=== PATIENT | male | born 1980 | race Two or more races ===

== ENCOUNTER 2016-09-13 19:14 | Emergency (ER) | payer SELFPAY ==
--- NOTE | ~2016-09-13 | CT2 ---
[facility] A Service of [facility] RADIOLOGY TEXT RESULTS PATIENT: ROSANA ANDRES LOCATION: [facility] : 82 UNIT #: [id number] AGE: [address]: Lazara Chaney MD SEX: M ORDER DR: [id number] [facility]. [place], [place] [address] [id number] MR#: [id number] #: [id number] NAME: ROSANA ANDRES : 1980 SEX: M STUDY DATE/TIME: 09/13/2016 22:16 UNIT: [facility] ROOM: STUDY DESCRIPTION: CT Abd and Pelv W Cont Attending Physician: Lazara Chaney M.D. Ordering Physician: Lazara Chaney M.D. Primary Care Physician: No Primary Care Physician MEDICAL IMAGING REPORT This report is preliminary unless electronic signature is present EXAM CT abdomen and pelvis with contrast. HISTORY 36-year-old male with abdominal pain, nausea, vomiting x3 days. States drinks 15-18 beers a day. COMPARISION CT abdomen and pelvis 12/03/15. TECHNIQUE Axial images form through the abdomen and pelvis following IV contrast. Multiplanar reconstructed images were reviewed at a workstation. This CT exam was performed with one or more of the following radiation dose reduction techniques: Automatic exposure control, adjustment of mA and/or kV according to patient size, and iterative reconstruction. FINDINGS Abdomen: Lung bases unremarkable. The liver demonstrates heterogeneous areas of decreased attenuation within the liver most prominent within the right lobe but also within the left lobe. This most likely represents heterogeneous fatty infiltration and as previously noted does have a somewhat mass-like appearance but remains stable when compared to the CT scan of November 2015. Given the patient's history of alcohol abuse. This may be a contributing factor. No definite cirrhotic changes are identified. Normal hepatic vasculature. Gallbladder, spleen, pancreas, kidneys and adrenal glands unremarkable. No ascites. Visualized GI tract to include the appendix is normal. Pelvis: Bladder and prostate appear normal. Osseous structures, soft tissues unremarkable. [facility] A Service of [facility] RADIOLOGY TEXT RESULTS PATIENT: ROSANA ANDRES LOCATION: [facility] : 82 UNIT #: [id number] AGE: [address]: Lazara Chaney MD SEX: M ORDER DR: IMPRESSION Markedly abnormal liver with apparent geographic fatty infiltration or hepatic steatosis of the liver, possibly a sequela of the patient's apparent, alcohol abuse. This however remains stable when compared to the patient's CT scan of November 2015. Dictated by... Carolyn Sims M.D. THIS IS AN ELECTRONICALLY VERIFIED REPORT Carolyn Sims M.D. at 09/14/2016 2:50 PM REGULO/david TD: 09/14/2016 06:17 JOB #: [id number] MEDICAL IMAGING REPORT Page 1 of 1 COPY
[2016-09-13 20:19] LABS: BASOPHIL# 0.1 X10e3 (0-0.3); BASOPHIL% 1.4 % (0-2.5); EOSINOPHIL# 0.1 X10e3 (0-0.7); EOSINOPHIL% 0.9 % (0.0-7.0); HEMATOCRIT 49.9 % (38.0-50.0); HEMOGLOBIN 16.6 gm/dL (13.0-16.0); LYMPHOCYTE# 1.6 X10e3 (1.0-3.5); LYMPHOCYTE% 19.5 % (17.0-45.0); MEAN CELL VOLUME 92.7 FL (83-96); MEAN CORPUSCULAR HEMOGLOBIN 30.8 PG (28-34); MEAN CORPUSCULAR HGB CONC 33.2 g/dL (30-36); MEAN PLATELET VOLUME 8.7 FL (6.5-11.5); MONOCYTE# 0.6 X10e3 (0-1.0); MONOCYTE% 6.7 % (3.0-12.0); NEUTROPHIL# 5.9 X10e3 (1.5-7.1); NEUTROPHIL% 71.5 % (40-75); PLATELET COUNT 164 X10e3 (140-420); RED BLOOD COUNT 5.39 X10e (3.90-5.60); RED CELL DISTRIBUTION WIDTH 12.9 % (11.0-15.5); WHITE BLOOD COUNT 8.2 X10e3 (4.0-10.5)
[2016-09-13 20:22] LABS: DIFF IND NO
[2016-09-13 20:45] LABS: ALBUMIN SERUM 4.5 g/dL (3.5-5.0); BILIRUBIN, DIRECT 0.5 mg/dL (0.0-0.2); BILIRUBIN,INDIRECT 1.3 mg/dL (0.0-0.9); BILIRUBIN,TOTAL 1.8 mg/dL (0.2-2.0); CALCIUM SERUM 9.3 mg/dL (8.4-10.2); CREATININE SERUM 0.8 mg/dL (0.6-1.4); GLOM FILT RATE Estimated 115.8 mL/min (>60); PROTEIN TOTAL SERUM 8.8 g/dL (6.0-8.3)
[2016-09-13 21:11] LABS: URINE SOURCE CLEAN CATCH
[2016-09-13 21:15] LABS: URINE APPEARANCE CLEAR; URINE BILIRUBIN NEG (NEG); URINE BLOOD NEG (NEG); URINE COLOR YELLOW; URINE GLUCOSE NEG (NEG); URINE KETONE NEG (NEG); URINE LEUKOCYTE ESTERASE NEG (NEG); URINE NITRATE NEG (NEG); URINE PH 6.5 (5-8); URINE PROTEIN NEG (NEG); URINE SPECIFIC GRAVITY 1.003 (1.003-1.035); URINE UROBILINOGEN 0.2 MG/DL (NEG)
[2016-09-13 21:17] LABS: CULTURE INDICATED? NO
[2016-09-13 21:47] LABS: AMPHETAMINE NEG (NEG); BARBITURATES NEG (NEG); BENZODIAZEPINES NEG (NEG); COCAINE NEG (NEG); MARIJUANA NEG (NEG); OPIATES NEG (NEG); TRICYCLIC ANTIDEPRESSANTS NEG (NEG); U METHADONE NEG (NEG)
== END 2016-09-13 23:23 | disposition home or self-care (01) ==
LOC: CED 19:14
PROVIDERS: Emergency Medicine
DX: K70.30 Alcoholic cirrhosis of liver without ascites (principal); F17.210 Nicotine dependence, cigarettes, uncomplicated
CPT/HCPCS: 36415; 74177; 80048; 80076; 80307; 81003; 83690; 85025; 96361; 96374; 99284; G0480; J1885; Q9967